=== PATIENT | male | born 1995 | race Hispanic/Latino ===

== ENCOUNTER 2018-05-16 17:07 | Inpatient (IN) | payer OTHER, SELFPAY ==
[~2018-05-16 17:07] MED LIST: Dexamethasone 20 MG/5 ML VIAL ONE; ISOVUE-370 76%-LOCM 1 ML ONE; Ketorolac Tromethamine 30 MG/ML VIAL ONE; Lidocaine 1% PF 5 ML VIAL ONE; Ondansetron PF 4 MG/2 ML Vial ONE; PROPOFOL 200 MG/20 ML VIAL ONE; Succinylcholine Chloride 20 MG/ML 10 ml SYRINGE FS ONE; ePHEDrine 50 MG/ML VIAL ONE
[2018-05-16] MEDS ORDERED: Adacel (T-DAP) 0.5 ML SYRINGE ONE (17:15)
[2018-05-16] MEDS ORDERED: Morphine 4 MG/ML VIAL ONE (17:15)
[2018-05-16 17:25] LABS: #Eosinphils 0.3 thou/uL (0.0-0.7); #Lymphocytes 2.9 thou/uL (1.20-3.40); #Monocytes 0.5 thou/uL (0.11-0.59); #Neutrophils 3.3 thou/uL (1.40-6.50); %Basophils 0.7 % (0.0-1.0); %Lymphocytes 41.1 % (21.0-51.0); %Monocytes 6.5 % (0.0-10.0); %Neutrophils 47.7 % (42.0-75.0); Hemoglobin 15.6 g/dL (14.0-18.0); Mean Corpuscular HGB CONC 34.4 g/dL (32.0-36.0); Mean Corpuscular Hemoglobin 30.4 pg (27.0-31.0); Mean Corpuscular Volume 88.4 fL (78.0-98.0); Mean Platelet Volume 7.9 fL (7.4-10.4); Platelet Count 255 thou/uL (130-400); RBC Distribution Width 11.4 % (11.5-14.5); Red Blood Cell (RBC) Count 5.12 mill/uL (4.70-6.10); White Blood Cell (WBC) Count 6.9 thou/uL (4.8-10.8)
--- NOTE | 2018-05-16 17:43 | RAD ---
XR Chest 1 View Portable HISTORY: Trauma, chest pain COMPARISON: None. FINDINGS: The heart size is normal. The lungs are well expanded without focal areas of consolidation, pneumothoraces or pleural effusions. IMPRESSION: No acute process.
[2018-05-16 17:52] LABS: ALT (SGPT) 19 U/L (8-55); AST (SGOT) 22 U/L (5-34); Albumin 4.9 g/dL (3.5-5.0); Alkaline Phosphatase 83 U/L (40-150); Anion Gap 17 mmol/L (10-20); BUN (Urea Nitrogen) 20 mg/dL (8.9-20.6); Bilirubin, Total 0.3 mg/dL (0.2-1.2); Calc. Creatinine Clearance 0 mL/min (70-130); Calcium 9.7 mg/dL (7.8-10.44); Carbon Dioxide 21 mmol/L (22-29); Chloride 106 mmol/L (98-107); Estimated GFR-MDRD 77; Globulin 3.2 g/dL (2.4-3.5); Glucose 117 mg/dL (70-105); Potassium 3.8 mmol/L (3.5-5.1); Protein, Total 8.1 g/dL (6.0-8.3); Sodium 140 mmol/L (136-145)
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
--- NOTE | 2018-05-16 18:24 | RAD ---
LEFT HAND THREE VIEWS: 05/16/18 HISTORY: Injury, trauma, left hand pain. FINDINGS/IMPRESSION: No acute fracture or dislocation is seen. There is soft tissue swelling at the level of the PIP joint of the ring finger. POS: NATH
[2018-05-16] MEDS ORDERED: Gentamicin 80 MG/2 ML VIAL ONE (18:35)
[2018-05-16] MEDS ORDERED: Bicillin LA 2.4 MILL.UNITS/4 ML SYRINGE IM SCH (18:45)
[2018-05-16] MEDS ORDERED: Bacitracin Zinc Ointment 30 gm TUBE ONE (21:00)
[2018-05-16] MEDS ORDERED: Bupivacaine PF 0.5% 30 ML VIAL ONE (21:00)
[2018-05-16] MEDS ORDERED: Sodium Chloride 0.9% 30 ML ONE (21:00)
[2018-05-16] MEDS ORDERED: Fentanyl 100 MCG/2 ML VIAL ONE (21:04)
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
[2018-05-16] MEDS ORDERED: Ondansetron HCl/PF 4 MG/2 ML Vial IVP PRN (22:38)
[2018-05-16] MEDS ORDERED: Promethazine HCl 25 MG/ML VIAL IM PRN ×4 (22:38→23:46)
[2018-05-16] MEDS ORDERED: PACU-Morphine 4MG/ML VIAL SLOW IVP PRN (22:38)
[2018-05-16] MEDS ORDERED: HYDROmorphone 2 MG/ML VIAL SLOW IVP PRN (22:38)
[2018-05-16] MEDS ORDERED: Promethazine HCl 25 MG/ML VIAL SLOW IVP PRN (22:38)
[2018-05-16] MEDS ORDERED: Meperidine HCl/PF 25 MG/ML VIAL IM PRN (23:01)
[2018-05-16] MEDS ORDERED: Ketorolac Tromethamine 30 MG/ML VIAL IVP PRN (23:01)
[2018-05-16] MEDS ORDERED: Acetaminophen 325 MG TAB PO PRN (23:02)
[2018-05-16] MEDS ORDERED: Ondansetron PF 4 MG/2 ML Vial IV PRN (23:02)
[2018-05-16] MEDS ORDERED: HYDROcodone/Acetaminophen 5/325 mg Tablet PO PRN (23:02)
[2018-05-16] MEDS ORDERED: traMADol HCl 50 MG TAB PO PRN ×3 (23:02→23:46)
[2018-05-16] MEDS ORDERED: Morphine 4 MG/ML VIAL SLOW IVP PRN (23:02)
[2018-05-16] MEDS ORDERED: TETANUS AND DIPHTHERIA TOX/PF 0.5 ML DISP.SYRIN IM SCH (23:15)
[2018-05-16] MEDS ORDERED: Acetaminophen 1,000 MG in Premix Bag 1 BAG IVPB SCH (23:46)
[2018-05-16] MEDS ORDERED: Sodium Chloride 0.9% 1,000 ML IV SCH (23:46)
[2018-05-16] MEDS ORDERED: Ondansetron PF 4 MG/2 ML Vial IVP PRN (23:46)
[2018-05-16] MEDS ORDERED: Dextrose 5% in Water 1,000 ML IV PRN (23:46)
[2018-05-16] MEDS ORDERED: Dextrose 50% Abboject 50 ML SYRINGE SLOW IVP PRN (23:46)
[2018-05-16] MEDS ORDERED: CEFAZOLIN 1 GM VIAL SLOW IVP SCH (23:46)
[2018-05-16] MEDS ORDERED: Ondansetron ODT 4 MG TAB PO PRN (23:46)
[2018-05-16] MEDS ORDERED: Cyclobenzaprine 10 MG TAB PO PRN (23:46)
[2018-05-17] MEDS: Ibuprofen 800 MG TAB PO SCH ×3 (00:22→16:31)
[2018-05-17] MEDS: Acetaminophen 500 MG TAB PO SCH ×4 (00:23→17:34)
[2018-05-17 01:00] VITALS: BMI 30.4
[2018-05-17] MEDS ORDERED: ceFAZolin 1 GM/D5W 1 GM in Premix Bag 1 BAG IVPB SCH ×2 (02:00→10:00)
[2018-05-17] MEDS ORDERED: Vancomycin HCl 1.25 GM in Sodium Chloride 0.9% 250 ML 250 ML IVPB SCH (02:00)
[2018-05-17 05:09] LABS: #Lymphocytes 0.6 thou/uL (1.20-3.40); #Monocytes 0.1 thou/uL (0.11-0.59); #Neutrophils 6.3 thou/uL (1.40-6.50); %Eosinophils 0.2 % (0.0-10.0); %Lymphocytes 8.4 % (21.0-51.0); %Monocytes 1.4 % (0.0-10.0); Hemoglobin 14.1 g/dL (14.0-18.0); Mean Corpuscular HGB CONC 34.6 g/dL (32.0-36.0); Mean Corpuscular Volume 89.8 fL (78.0-98.0); Mean Platelet Volume 8.4 fL (7.4-10.4); Platelet Count 209 thou/uL (130-400); RBC Distribution Width 11.4 % (11.5-14.5); Red Blood Cell (RBC) Count 4.53 mill/uL (4.70-6.10)
[2018-05-17] MEDS ORDERED: Vancomycin HCl 1 GM in Premix Bag 1 BAG IVPB SCH (09:00)
--- NOTE | 2018-05-17 10:23 | OP ---
DATE OF PROCEDURE: 05/16/2018 PREOPERATIVE DIAGNOSIS: Contaminated open wound with possible neurovascular damage, palmar aspect ring finger. POSTOPERATIVE DIAGNOSIS: Contaminated open wound with possible neurovascular damage, palmar aspect ring finger with marked amount of gross contamination to include ground and dirt and tar in the open wound even in the peritendinous spaces. PROCEDURES PERFORMED: 1. Debridement of wound multiple depths down to but not including bone. 2. Digital nerve neuroplasty x2. FINDINGS: Multiple particles of tar and dirt suspended throughout all the open areas of this proximal phalanx, palmar aspect, left ring finger. TOURNIQUET TIME: 22 minutes. ESTIMATED BLOOD LOSS: 10 mL, and again there was a great amount of debris initially seen and then finally seen, but this was cleared with debridement. DESCRIPTION OF PROCEDURE: After successful general endotracheal anesthesia, the patient's limb was prepped and draped. We then did a prescrub for 15 minutes to remove the visible tar and dirt, prepped and draped the area of the proximal incision localized wound. Once the incision was extended 1 cm distal and 0.5 cm proximal, it showed deep contamination of dirt particles in between the flexor digitorum superficialis and both intact and external to these areas and in classic locations to include subcutaneous fat in this case as well as between the flexor digitorum superficialis and profundus tendons. For this reason, after performing debridement using the following technique, he was irrigated with 3 L normal saline and Pulsavac pressure. Tourniquet inflated. 1. Excisional debridement. 2. Removal of multiple dirt particles using baby curette, tenotomy scissors, as well as [place] blade. 3. Depth was down to and deep to the tendons. Between the tendon sheath and the periosteum made sure there was no contamination found here, and the particles were imbedded, but there was no gross infection yet. Once we finished the instrumentation used for the debridement with the tenotomy scissors, Crile hemostat, and 11 blade knife, we finished the neuroplasty under magnification with loupes and found no laceration of neurovascular bundle, irrigated a short amount, finished the debridement. Irrigated the area with normal saline and Pulsavac pressure with antibiotics inside, 3 L, and once this was done, we then placed a wet-to-dry bulky dressing and explained techniques to the family and prepare the patient for being admitted for IV antibiotics. It should be noted that the ulnar nerve and median nerve distribution were all intact grossly. Job ID: [id number]
[2018-05-17] MEDS: Aspirin 81 mg Enteric Coated Tablet PO SCH ×2 (10:32→21:17)
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
[2018-05-18] MEDS: Ibuprofen 800 MG TAB PO SCH ×2 (00:21→12:23)
[2018-05-18] MEDS: Acetaminophen 500 MG TAB PO SCH ×3 (00:21→12:24)
[2018-05-18] MEDS ORDERED: Fentanyl 100 MCG/2 ML VIAL ONE (09:34)
[2018-05-18] MEDS ORDERED: Bupivacaine PF 0.5% 30 ML VIAL ONE (09:36)
[2018-05-18] MEDS ORDERED: Thrombin 5000 UNITS/5 ML VIAL ONE (09:36)
[2018-05-18] MEDS ORDERED: Bacitracin Zinc Ointment 30 gm TUBE ONE (09:36)
[2018-05-18] MEDS ORDERED: Sodium Chloride 0.9% 10 ML ONE (09:37)
[2018-05-18] MEDS ORDERED: Sterile Water 0 ML ONE (09:37)
[2018-05-18] MEDS ORDERED: Midazolam HCl 2 mg/2 ml Vial ONE (09:39)
[2018-05-18] MEDS: Aspirin 81 mg Enteric Coated Tablet PO SCH (12:24)
[2018-05-18 13:22] LABS: Vancomycin, Trough Less than 1.1 ug/mL
[2018-05-18 15:46] VITALS: BP 115/80; TEMP 98.7
[2018-05-18] MEDS ORDERED: Metoclopramide HCl 10 MG/2 ML VIAL ONE (16:44)
[2018-05-18] MEDS ORDERED: Lidocaine 1% PF 5 ML VIAL ONE (16:44)
[2018-05-18] MEDS ORDERED: Dexamethasone 20 MG/5 ML VIAL ONE (16:44)
[2018-05-18] MEDS ORDERED: PROPOFOL 200 MG/20 ML VIAL ONE (16:44)
[2018-05-18] MEDS ORDERED: Ondansetron PF 4 MG/2 ML Vial ONE (16:44)
[2018-05-18] MEDS ORDERED: Ketorolac Tromethamine 30 MG/ML VIAL ONE (16:44)
--- NOTE | 2018-05-18 17:42 | OP ---
DATE OF PROCEDURE: 05/18/2018 PREOPERATIVE DIAGNOSIS: Open wound, 7 cm complex left ring finger. POSTOPERATIVE DIAGNOSIS AND FINDINGS: No gross contamination, only minimal wound edge necrosis. PROCEDURE PERFORMED: Debridement of wound of intermediate depth using the following techniques. 1. Excisional debridement. 2. Used tenotomy scissors, [place] blade, Adson's, and irrigated with 1 L normal saline. 3. Depth was down to including the tendon sheath. 4. There was no gross infection, only minimal macerations on the wound edges required proximal 1 mm circumferential debridement. TOURNIQUET TIME: None. ESTIMATED BLOOD LOSS: Less than 5 mL. COMPLICATIONS: None. CULTURES: None. INDICATION: The patient returns for staged wound management, its a very contaminated wound with contusion to the nerves already documented, but the nerve and sheath intact. Also, had vascularity intact before during and after the surgery today. No tourniquet was inflated. DESCRIPTION OF PROCEDURE: After successful general LMA technique, the limb was prepped and draped. Time-out was done appropriately. A 10 mL of 0.5% Marcaine given, some as a block and some jodie-incisional. No epinephrine. We pulled the wound edge flaps, debrided listed as above the wound edge flaps, there was no gross contamination to include between the tendons and deep to the tendons. The patient then had the irrigation completed, we had excellent hemostasis, and then we closed the wound with interrupted 4-0 nylon simple pattern. Bulky dressing was applied, and the patient left the operating room without evidence of anesthetic or operative complication. Job ID: [id number]
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
--- NOTE | 2018-05-19 11:57 | EKG ---
Test Reason : Blood Pressure : / mmHG Vent. Rate : 084 BPM Atrial Rate : 084 BPM P-R Int : 154 ms QRS Dur : 076 ms QT Int : 344 ms P-R-T Axes : 046 023 011 degrees QTc Int : 406 ms Normal sinus rhythm Normal ECG Confirmed by NHUNG DOUGHERTY M.D. ([id number]), city editor [facility] ([id number] on 05/19/2018 11:56:54 AM Referred By: Confirmed By:NHUNG DOUGHERTY M.D.
== END 2018-05-18 15:15 | disposition home or self-care (01) | DRG 983 ==
LOC: ERS 17:07 → SURG A 20:39
PROVIDERS: ADMIT Surgery; ATTEND Surgery
PROC: 0LB80ZZ Excision of Left Hand Tendon, Open Approach (ICD-10-PCS; principal; 2018-05-16)
PROC: 01Q60ZZ Repair Radial Nerve, Open Approach (ICD-10-PCS; 2018-05-16)
PROC: 01Q40ZZ Repair Ulnar Nerve, Open Approach (ICD-10-PCS; 2018-05-16)
PROC: 0LB80ZZ Excision of Left Hand Tendon, Open Approach (ICD-10-PCS; 2018-05-18)
DX: S20.212A Contusion of left front wall of thorax, initial encounter (principal); V49.3XXA Car occupant (driver) (passenger) injured in unspecified nontraffic accident, initial encounter; S61.205A Unspecified open wound of left ring finger without damage to nail, initial encounter
CPT/HCPCS: 36415; 71045; 71260; 74177; 80053; 80202; 84484; 85025; 90471; 90715; 93005; 94760; 96365; 96375; A4216; J0690; J1100; J1580; J1885; J2001; J2250; J2270; J2405; J2704; J3010; J3370; J3490; J7050; S0020

== ENCOUNTER 2020-12-19 12:46 | Emergency (ER) | payer OTHER ==
[~2020-12-19 12:46] MED LIST changes: -Dexamethasone 20 MG/5 ML VIAL ONE; -ISOVUE-370 76%-LOCM 1 ML ONE; +Iopamidol-370 76% 500 ML 1 ML ONE; -Ketorolac Tromethamine 30 MG/ML VIAL ONE; -Lidocaine 1% PF 5 ML VIAL ONE; -Ondansetron PF 4 MG/2 ML Vial ONE; -PROPOFOL 200 MG/20 ML VIAL ONE; -Succinylcholine Chloride 20 MG/ML 10 ml SYRINGE FS ONE; -ePHEDrine 50 MG/ML VIAL ONE
[2020-12-19] MEDS ORDERED: Fentanyl 100 MCG/2 ML VIAL ONE (12:58)
[2020-12-19 13:20] LABS: #Eosinphils 0.2 thou/uL (0.0-0.7); #Lymphocytes 1.4 thou/uL (1.20-3.40); #Monocytes 0.5 thou/uL (0.11-0.59); #Neutrophils 5.9 thou/uL (1.40-6.50); %Basophils 0.3 % (0.0-1.0); %Lymphocytes 17.1 % (21.0-51.0); %Monocytes 5.8 % (0.0-10.0); %Neutrophils 74.9 % (42.0-75.0); Mean Corpuscular HGB CONC 34.1 g/dL (32.0-36.0); Mean Corpuscular Hemoglobin 30.8 pg (27.0-31.0); Mean Corpuscular Volume 90.3 fL (78.0-98.0); Platelet Count 234 thou/uL (130-400); RBC Distribution Width 11.4 % (11.5-14.5); Red Blood Cell (RBC) Count 4.88 mill/uL (4.70-6.10); White Blood Cell (WBC) Count 7.9 thou/uL (4.8-10.8)
[2020-12-19 13:37] LABS: ALT (SGPT) 33 U/L (8-55); AST (SGOT) 24 U/L (5-34); Albumin 4.3 g/dL (3.5-5.0); Alkaline Phosphatase 76 U/L (40-110); Anion Gap 11 mmol/L (10-20); BUN (Urea Nitrogen) 18 mg/dL (8.9-20.6); Bilirubin, Total 0.5 mg/dL (0.2-1.2); Calc. Creatinine Clearance 0 mL/min (70-130); Calcium 9.4 mg/dL (7.8-10.44); Carbon Dioxide 22 mmol/L (22-29); Chloride 109 mmol/L (98-107); Glucose 94 mg/dL (70-105); Potassium 3.9 mmol/L (3.5-5.1); Protein, Total 7.3 g/dL (6.0-8.3); Sodium 138 mmol/L (136-145)
[2020-12-19] MEDS ORDERED: Morphine 4 MG/ML VIAL ONE (13:58)
== END 2020-12-19 16:49 | disposition home or self-care (01) ==
LOC: ERS 12:46
DX: S02.85XA Fracture of orbit, unspecified, initial encounter for closed fracture (principal); S30.0XXA Contusion of lower back and pelvis, initial encounter; S50.812A Abrasion of left forearm, initial encounter; S80.212A Abrasion, left knee, initial encounter; S80.211A Abrasion, right knee, initial encounter; V89.2XXA Person injured in unspecified motor-vehicle accident, traffic, initial encounter
CPT/HCPCS: 70450; 71045; 71260; 72125; 72170; 74177; 80053; 85025; 96374; 96375; G0390; J2270; J3010; Q9967